=== PATIENT | female | born 1975 | race African-American/Black ===

== ENCOUNTER 2022-11-20 09:54 | Emergency (ER) | payer MEDICAID ==
[2022-11-20] MEDS ORDERED: Lidocaine 1% (PF) 30 ML VIAL ONE (10:28)
== END 2022-11-20 10:52 | disposition home or self-care (01) ==
LOC: MADERS 09:54
DX: G44.209 Tension-type headache, unspecified, not intractable (principal); D17.9 Benign lipomatous neoplasm, unspecified; E11.9 Type 2 diabetes mellitus without complications; E03.9 Hypothyroidism, unspecified; E66.9 Obesity, unspecified
CPT/HCPCS: 64405; J2001

== ENCOUNTER 2024-09-24 11:55 | Emergency (ER) | payer MEDICARE, OTHER ==
[~2024-09-24 11:55] MED LIST: Iopamidol 370 76% 100 ML VIAL ONE
[2024-09-24 13:11] LABS: ALT (SGPT) 10 U/L (8-55); AST (SGOT) 8 U/L (5-34); Albumin 3.7 g/dL (3.5-5.0); Alkaline Phosphatase 80 U/L (40-110); Anion Gap 18 mmol/L (10-20); BUN (Urea Nitrogen) 10 mg/dL (7.0-18.7); Bilirubin, Total 0.3 mg/dL (0.2-1.2); Calc. Creatinine Clearance 0 mL/min (70-130); Calcium 9.5 mg/dL (7.8-10.44); Carbon Dioxide 20 mmol/L (22-29); Chloride 99 mmol/L (98-107); Estimated GFR 61; Globulin 3.8 g/dL (2.4-3.5); Lipase 26 U/L (8-78); Potassium 2.8 mmol/L (3.5-5.1); Protein, Total 7.5 g/dL (6.0-8.3); Sodium 134 mmol/L (136-145)
[2024-09-24 13:16] LABS: Glucose 614 mg/dL (70-105)
[2024-09-24 13:28] LABS: Band 2 % (5-11); Hematocrit 36.6 % (36.0-47.0); Hemoglobin 11.4 g/dL (12.0-16.0); Hypochromia SLIGHT = 6-15 cells (100X) (0-5/hpf); Lymphocytes 30 % (21-51); MDiff Complete? YES; Mean Corpuscular HGB CONC 31.1 g/dL (32.0-36.0); Mean Corpuscular Hemoglobin 26.5 pg (27.0-31.0); Mean Platelet Volume 7.4 fL (7.4-10.4); Monocytes 5 % (0-10); Neutrophil 63 % (42-75); Platelet Adequacy Comment Appears Adequate; Platelet Count 270 10x3/uL (130-400); RBC Distribution Width 11.8 % (11.5-14.5); Red Blood Cell (RBC) Count 4.31 mill/uL (4.20-5.40); White Blood Cell (WBC) Count 5.8 10x3/uL (4.8-10.8)
[2024-09-24] MEDS ORDERED: Morphine 4 MG/ML VIAL ONE (13:40)
[2024-09-24] MEDS ORDERED: Acetaminophen 500 MG TAB ONE (13:41)
[2024-09-24] MEDS ORDERED: Lactated Ringer's 1,000 ML ONE (13:56)
[2024-09-24] MEDS ORDERED: Lidocaine 4% Patch ONE (13:56)
[2024-09-24] MEDS ORDERED: Potassium Chloride 20 MEQ TAB ONE (13:56)
[2024-09-24 14:13] LABS: Magnesium 1.9 mg/dL (1.6-2.6)
[2024-09-24 14:18] LABS: Bilirubin Negative (Negative); Blood, Urine Negative (Negative); Glucose, Urine (Dipstick) >=1000 mg/dL (Negative); Ketone, Urine Negative (Negative); Leukocyte Negative (Negative); Nitrite Negative (Negative); Protein, Urine (Dipstick) Trace mg/dL (Neg-Trace); Urobilinogen 0.2 mg/dL (Less than 2)
[2024-09-24 14:22] LABS: Bacteria/HPF 1+ HPF (None Seen); CAUTI Indications for Culture Dysuria,urgency,freq; Clarity Hazy (Clear); RBC/HPF 0-3 HPF (0-3); Specific Gravity, Urine 1.036 (1.002-1.036); WBC/HPF 0-3 HPF (0-3)
[2024-09-24 14:23] LABS: Pregnancy Test - Urine (BHCG) Negative (Negative); Pregu Control Background? CLEAR/WHITE (CLR/WHITE); Pregu Control Bar Appear? YES (CONTROL BAR); Specific Gravity 1.036 (1.002-1.036); Urine Culture Reflex No No
[2024-09-24] MEDS ORDERED: Methocarbamol 1 GM (10 mL) VIAL ONE (14:59)
[2024-09-24] MEDS ORDERED: Ketorolac Tromethamine 30 MG (1 mL) VIAL ONE (14:59)
== END 2024-09-24 15:50 | disposition home or self-care (01) ==
LOC: MADERS 11:55
DX: M54.50 Low back pain, unspecified (principal); M25.561 Pain in right knee; F32.A Depression, unspecified; I10 Essential (primary) hypertension; E11.65 Type 2 diabetes mellitus with hyperglycemia; E87.6 Hypokalemia
CPT/HCPCS: 36416; 71045; 74177; 80053; 81001; 81025; 83690; 83735; 85025; 94760; 96361; 96374; 96375; J1885; J2272; J2800; J7120; Q9967